=== PATIENT | female | born 1930 | race Caucasian/White ===

== ENCOUNTER → 2019-03-16 | Outpatient (CLI) | payer MEDICARE, MEDICAID ==
--- NOTE | 2019-03-16 15:34 | Diagnostic Imaging Report ---
INDICATION: Fall with pain to the lateral ankle. TIME OF EXAM: 3:20 p.m. FINDINGS: Three views of the right ankle were obtained. There is generalized demineralization. There is soft tissue swelling about the lateral ankle. There is an osseous density noted on the oblique view along the lateral aspect of the calcaneus, perhaps a small fracture fragment. The ankle mortise is maintained. Talar dome is smooth. A large plantar calcaneal spur is seen. IMPRESSION: Questionable small fracture in the lateral foot/ankle, perhaps adjacent to the lateral aspect of the calcaneus. There is lateral soft tissue swelling. No other suspicious abnormality is seen. Dictated by: Dictated on workstation # [id number]
--- NOTE | 2019-03-16 15:35 | Diagnostic Imaging Report ---
INDICATION: Fall with right foot pain. TIME OF EXAM: 03:21 p.m. FINDINGS: Three views of the right foot were obtained. There is an acute fracture at the base of the fifth metatarsal. Fracture line is transversely oriented. There is also a tiny osseous density projected adjacent to the lateral cortex of the calcaneus. This may represent calcific density noted on the ankle radiographs and could represent an age-indeterminate fracture fragment. Remaining metatarsals are intact. Phalanges are intact. Mid foot and hind foot are otherwise unremarkable apart from a large plantar calcaneal spur. IMPRESSION: 1. Proximal fifth metatarsal fracture. 2. Indeterminate calcific density adjacent to the lateral cortex of the calcaneus. Dictated by: Dictated on workstation # [id number]
== END ==
LOC: RAD 14:49
PROVIDERS: ATTEND Nurse Practitioner Family
DX: S92.351A Displaced fracture of fifth metatarsal bone, right foot, initial encounter for closed fracture (principal); W19.XXXA Unspecified fall, initial encounter
CPT/HCPCS: 73610; 73630

== ENCOUNTER 2020-12-26 11:20 | Inpatient (IN) | payer MEDICARE, MEDICAID ==
[~2020-12-26] VITALS: Ht 170.1 cm; Wt 63.7 kg
[2020-12-26] MEDS ORDERED: ACETAMINOPHEN 500 MG TAB (TYLENOL) PO ONE (11:45)
[2020-12-26] MEDS: NS IV 1000 ML 1,000 ML IV SCH ×4 (11:47→22:58)
[2020-12-26 11:51] LABS: EOSINOPHILS % (AUTO) 0 % (0-10); MONOCYTES # (AUTO) 0.5 10^3/uL (0.0-1.0); MONOCYTES % (AUTO) 9 % (0-12)
[2020-12-26 11:52] LABS: BASOPHILS % (AUTO) 0 % (0-10); HEMATOCRIT 45 % (35-52); HEMOGLOBIN 14.7 g/dL (11.5-16.0); LYMPHOCYTES # (AUTO) 2.1 10^3/uL (1.0-4.0); LYMPHOCYTES % (AUTO) 37 % (12-44); MEAN CORPUSCULAR HEMOGLOBIN 33 pg (25-34); MEAN CORPUSCULAR HGB CONC 33 g/dL (32-36); MEAN CORPUSCULAR VOLUME 102 fL (80-99); MEAN PLATELET VOLUME 14.1 fL (9.0-12.2); NEUTROPHILS % (AUTO) 53 % (42-75); WHITE BLOOD COUNT 5.6 10^3/uL (4.3-11.0)
[2020-12-26 11:54] LABS: PLATELET COUNT 73 10^3/uL (130-400)
[2020-12-26] MEDS ORDERED: DIGOXIN 0.25 MG/ML (LANOXIN) 2 ML AMP ONE (11:54)
[2020-12-26] MEDS ORDERED: DIGOXIN 0.25 MG/ML (LANOXIN) 2 ML AMP IV ONE (12:00)
[2020-12-26] MEDS ORDERED: NS IV 1000 ML 1,000 ML ONE (12:03)
[2020-12-26 12:06] LABS: ALBUMIN 3.5 GM/DL (3.2-4.5)
[2020-12-26 12:07] LABS: POTASSIUM 4.1 MMOL/L (3.6-5.0)
[2020-12-26 12:08] LABS: CALCIUM 8.8 MG/DL (8.5-10.1)
[2020-12-26 12:09] LABS: TOTAL PROTEIN 6.9 GM/DL (6.4-8.2)
[2020-12-26 12:11] LABS: BILIRUBIN,TOTAL 0.3 MG/DL (0.1-1.0)
[2020-12-26 12:13] LABS: CREATININE SERUM 1.24 MG/DL (0.60-1.30)
[2020-12-26 12:24] LABS: BILIRUBIN,URINE NEGATIVE (NEGATIVE); CLARITY,URINE CLEAR; COLOR,URINE YELLOW; GLUCOSE, URINE (UA) NEGATIVE (NEGATIVE); KETONES,URINE NEGATIVE (NEGATIVE); LEUKOCYTE ESTERASE ,URINE NEGATIVE (NEGATIVE); NITRITE,URINE POSITIVE (NEGATIVE); PH,URINE 5.5 (5-9); PROTEIN,URINE 1+ (NEGATIVE)
[2020-12-26] MEDS ORDERED: NS IV 1000 ML 1,000 ML IV SCH ×2 (12:30→13:45)
[2020-12-26 12:34] LABS: FIBRIN DEGRADATION PRODUCTS 0.84 UG/ML (0.00-0.49); PROTHROMBIN TIME PATIENT 13.6 SEC (12.2-14.7)
[2020-12-26 12:39] LABS: AMORPHOUS SEDIMENT,UR FEW AMOR URATES /LPF; BACTERIA,URINE LARGE /HPF; RBC,URINE 0-2 /HPF; WBC,URINE 0-2 /HPF
--- NOTE | 2020-12-26 12:58 | ED General ---
General Chief Complaint: Cardiac/General Problems Stated Complaint: FEVER,WEAKNESS Nursing Triage Note: TO ROOM 9 VIA EMS FROM HOME. PATIENT IS IN [facility] AT A RATE OF [address] COTA TO ROOM PATIENT HAS HAD FEVER AND IS REPORTED TO HAVE NOT EATEN OR DRANK IN 3-4 DAYS. PATIENT IS ALERT AND ORIENTED TO PERSON. Source of Information: EMS Exam Limitations: Physical Impairments History of Present Illness Date Seen by Provider: Dec 26, 2020 Time Seen by Provider: 11:30 Initial Comments Patient is an 89-year-old female who presents to the emergency department today with a chief complaint of generalized weakness. EMS gives report that the patient has not really had much to eat or drink for the last 3 days and that all of her family members are Covid positive. EMS states that family was trying to ambulate her to the car to bring her to the hospital by private vehicle and the patient became so weak that she could not stand and she was assisted to the ground by family members. She did not sustain a trauma or actual fall. The patient herself is really not complaining of any specific medical complaints. She denies feeling short of breath or palpitations although the patient's heart rate is in the 180s to 220s on arrival. She denies any nausea or shortness of breath. She does look like she feels bad. She rests mostly with her eyes closed but will answer questions. She denies abdominal pain. She denies burning with urination. I do suspect that the patient has an element of some dementia. She does know that she is in the hospital. She denies headache, sore throat, diarrhea. Patient is treated immediately with a gram of Tylenol and 2 L of IV fluids. Her pressure did drop into the 70s at one point. But after the third liter was started and half of a milligram of digoxin IV her heart rate is down into the 1 teens/120s and her blood pressure is 107 systolic. Patient remains alert and oriented to self and situation. She is oxygenating well and appears in no respiratory distress. All other review of systems reviewed and negative except as stated above. Timing/Duration: 2-3 Days Severity: Severe Associated Systoms: Loss of Appetite, Malaise, Weakness Allergies and Home Medications Allergies Coded Allergies: No Known Drug Allergies (Unverified , 12/26/20) Patient Home Medication List Home Medication List Reviewed: Yes Review of Systems Review of Systems Constitutional: fever, malaise, weakness EENTM: no symptoms reported Respiratory: no symptoms reported Cardiovascular: no symptoms reported Gastrointestinal: no symptoms reported Genitourinary: no symptoms reported Musculoskeletal: no symptoms reported Skin: no symptoms reported All Other Systems Reviewed Negative Unless Noted: Yes Past Xygdbtw-Feagfs-Hqcexk Hx Patient Social History Tobacco Use?: No Pt feels they are or have been: No Immunizations Up To Date Influenza Vaccine Up-to-Date: No; Not Current Physical Exam Vital Signs Vital Signs - First Documented 12/26/20 12/26/20 11:20 12:16 Temp 38.3 Pulse 206 Resp 37 B/P (MAP) 101/69 (80) Pulse Ox 94 O2 Flow Rate 2.00 Capillary Refill : Less Than 3 Seconds Height, Weight, BMI Height: '" Weight: lbs. oz. kg; 18.00 BMI Method: General Appearance: No Apparent Distress, Chronically ill Eyes: Bilateral Eye Normal Inspection, Bilateral Eye PERRL, Bilateral Eye EOMI HEENT: Other (Dry oral mucosa) Neck: Normal Inspection Respiratory: Lungs Clear, Normal Breath Sounds, No Accessory Muscle Use, No Respiratory Distress Cardiovascular: Irregularly Irregular, Tachycardia Gastrointestinal: Non Tender, Soft Extremity: Normal Inspection, Normal Range of Motion, Non Tender, No Calf Tenderness Neurologic/Psychiatric: Alert, Oriented x3, No Motor/Sensory Deficits, Normal Mood/Affect Skin: Normal Color, Warm/Dry, Pallor (Slight pallor noted) Focused Exam Lactate Level 12/26/20 11:20: Lactic Acid Level 3.19*H Lactic Acid Level Laboratory Tests Test 12/26/20 11:20 Lactic Acid Level 3.19 MMOL/L (0.50-2.00) *H Progress/Results/Core Measures Suspected Sepsis SIRS Temperature: Pulse: 206 Respiratory Rate: 37 Laboratory Tests 12/26/20 11:20: White Blood Count 5.6 Blood Pressure 101 /69 Mean: 85 12/26/20 11:20: Lactic Acid Level 3.19*H Laboratory Tests 12/26/20 11:20: Creatinine 1.24, INR Comment 1.0, Platelet Count 73L, Total Bilirubin 0.3 Results/Orders Lab Results Laboratory Tests Test 12/26/20 11:20 12/26/20 11:45 Range/Units White Blood Count 5.6 4.3-11.0 10^3/uL Red Blood Count 4.43 3.80-5.11 10^6/uL Hemoglobin 14.7 11.5-16.0 g/dL Hematocrit 45 35-52 % Mean Corpuscular Volume 102 H 80-99 fL Mean Corpuscular Hemoglobin 33 25-34 pg Mean Corpuscular Hemoglobin Concent 33 32-36 g/dL Red Cell Distribution Width 11.9 10.0-14.5 % Platelet Count 73 L 130-400 10^3/uL Mean Platelet Volume 14.1 H 9.0-12.2 fL Immature Granulocyte % (Auto) 0 % Neutrophils (%) (Auto) 53 42-75 % Lymphocytes (%) (Auto) 37 12-44 % Monocytes (%) (Auto) 9 0-12 % Eosinophils (%) (Auto) 0 0-10 % Basophils (%) (Auto) 0 0-10 % Neutrophils # (Auto) 3.0 1.8-7.8 10^3/uL Lymphocytes # (Auto) 2.1 1.0-4.0 10^3/uL Monocytes # (Auto) 0.5 0.0-1.0 10^3/uL Eosinophils # (Auto) 0.0 0.0-0.3 10^3/uL Basophils # (Auto) 0.0 0.0-0.1 10^3/uL Immature Granulocyte # (Auto) 0.0 0.0-0.1 10^3/uL Percent Immature Platelet Fraction 12.7 H 0.0-7.6 % Prothrombin Time 13.6 12.2-14.7 SEC INR Comment 1.0 0.8-1.4 Activated Partial Thromboplast Time 29 24-35 SEC D-Dimer 0.84 H 0.00-0.49 UG/ML Sodium Level 151 H 135-145 MMOL/L Potassium Level 4.1 3.6-5.0 MMOL/L Chloride Level 114 H 98-107 MMOL/L Carbon Dioxide Level 22 21-32 MMOL/L Anion Gap 15 H 5-14 MMOL/L Blood Urea Nitrogen 37 H 7-18 MG/DL Creatinine 1.24 0.60-1.30 MG/DL Estimat Glomerular Filtration Rate 41 BUN/Creatinine Ratio 30 Glucose Level 122 H 70-105 MG/DL Lactic Acid Level 3.19 *H 0.50-2.00 MMOL/L Calcium Level 8.8 8.5-10.1 MG/DL Corrected Calcium 9.2 8.5-10.1 MG/DL Total Bilirubin 0.3 0.1-1.0 MG/DL Aspartate Amino Transf (AST/SGOT) 40 H 5-34 U/L Alanine Aminotransferase (ALT/SGPT) 20 0-55 U/L Alkaline Phosphatase 54 40-136 U/L Total Protein 6.9 6.4-8.2 GM/DL Albumin 3.5 3.2-4.5 GM/DL Procalcitonin 0.08 <0.10 NG/ML Influenza Type A (RT-PCR) Not Detected Not Detecte Influenza Type B (RT-PCR) Not Detected Not Detecte SARS-CoV-2 RNA (RT-PCR) Detected H Not Detecte Urine Color YELLOW Urine Clarity CLEAR Urine pH 5.5 5-9 Urine Specific [place] 1.025 H 1.016-1.022 Urine Protein 1+ H NEGATIVE Urine Glucose (UA) NEGATIVE NEGATIVE Urine Ketones NEGATIVE NEGATIVE Urine Nitrite POSITIVE H NEGATIVE Urine Bilirubin NEGATIVE NEGATIVE Urine Urobilinogen 0.2 < = 1.0 MG/DL Urine Leukocyte Esterase NEGATIVE NEGATIVE Urine RBC (Auto) 1+ H NEGATIVE Urine RBC 0-2 /HPF Urine WBC 0-2 /HPF Urine Crystals PRESENT H /LPF Urine Amorphous Sediment FEW [place] URATES H /LPF Urine Bacteria LARGE H /HPF Urine Casts NONE /LPF Urine Mucus NEGATIVE /LPF Urine Culture Indicated YES My Orders Orders - TERESA COTA MD Cbc With Automated Diff (12/26/20 11:38) Comprehensive Metabolic Panel (12/26/20 11:38) Blood Culture (12/26/20 11:38) Ua Culture If Indicated (12/26/20 11:38) Procalcitonin (Pct) (12/26/20 11:38) Fibrin Degradation Products (12/26/20 11:38) Lactic Acid Analyzer (12/26/20 11:38) Chest 1 View, Ap/Pa Only (12/26/20 11:38) Covid 19 Inhouse Test (12/26/20 11:38) Influenza A And B By Pcr (12/26/20 11:38) Ns Iv 1000 Ml (Sodium Chloride 0.9%) (12/26/20 11:45) Acetaminophen Tablet (Tylenol Tablet) (12/26/20 11:45) Blood Culture (12/26/20 11:50) Digoxin Injection (Lanoxin Injection) (12/26/20 12:00) Digoxin Injection (Lanoxin Injection) (12/26/20 11:54) Ns Iv 1000 Ml (Sodium Chloride 0.9%) (12/26/20 12:03) Diltiazem Injection (Cardizem Injection) (12/26/20 12:30) Ns Iv 1000 Ml (Sodium Chloride 0.9%) (12/26/20 12:30) Protime With Inr (12/26/20 11:20) Partial Thromboplastin Time (12/26/20 11:20) Urine Culture (12/26/20 11:45) Ed Iv/Invasive Line Start (12/26/20 12:53) Ed Iv/Invasive Line Start (12/26/20 12:53) Vital Signs Adult Sepsis Patie Q15M (12/26/20 12:53) O2 (12/26/20 12:53) Remove Rings In Anticipation O (12/26/20 12:53) Ceftriaxone (Rocephin) (12/26/20 13:00) Ceftriaxone (Rocephin) (12/26/20 13:33) Water (Sterile) For Injection (Sterile W (12/26/20 13:33) Ns Iv 1000 Ml (Sodium Chloride 0.9%) (12/26/20 13:45) Pharmacy Consult/Message (12/26/20 13:55) Dexamethasone Injection (Decadron Injec (12/26/20 14:00) Medications Given in ED Current Medications Medications Dose Ordered Sig/Sukhjinder Route Start Time Stop Time Status Last Admin Dose Admin Acetaminophen 1,000 mg ONCE ONCE PO 12/26/20 11:45 12/26/20 11:46 DC 12/26/20 11:47 1,000 MG Ceftriaxone Sodium 1000 mg/ Sterile Water 10 ml @ 200 mls/hr ONCE ONCE IV 12/26/20 13:00 12/26/20 13:02 DC 12/26/20 13:42 200 MLS/HR Digoxin 0.5 mg ONCE ONCE IV 12/26/20 12:00 12/26/20 12:01 DC 12/26/20 11:56 0.5 MG Vital Signs/I&O 12/26/20 12/26/20 12/26/20 11:20 11:47 12:16 Temp 38.3 38.3 37.1 Pulse 206 134 Resp 37 17 B/P (MAP) 101/69 (80) 120/68 (85) Pulse Ox 94 95 O2 Flow Rate 2.00 Capillary Refill : Less Than 3 Seconds Blood Pressure Mean: 85 ECG Initial ECG Impression Date: Dec 26, 2020 Initial ECG Impression Time: 11:28 Initial ECG Rate: 196 Initial ECG Rhythm: A Fib/Flutter Initial ECG Impression: Atrial Fibrillation w/RVR EKG #1: EKG Time: 12:53 Rate: 139 Rhythm: A Fib/Flutter ECG Comparisson: Changed ECG Impression: Atrial Fibrillation w/RVR EKG #2: EKG Time: 13:51 Rate: 80 Rhythm: Normal Sinus Intervals: Normal ECG Comparisson: Changed ECG Impression: Normal Diagnostic Imaging Diagonstic Imaging: Xray Plain Films/CT/US/NM/MRI: chest Comments [facility], [place] NAME: TERESA ASHBY [facility] REC#: [id number] PT STATUS: REG ER : 1930 PHYSICIAN: TERESA COTA MD ADMIT DATE: 12/26/20/ER Draft Date of Exam:12/26/20 CHEST 1 VIEW, AP/PA ONLY INDICATION: Covid, pneumonia. COMPARISON: None available TECHNIQUE: Single radiograph of the chest dated 12/26/2020 FINDINGS: The cardiac silhouette is mildly enlarged. No significant pulmonary vascular congestion. Significant mixed interstitial and airspace opacities are noted within the lungs bilaterally, particularly within the left perihilar region as well as within the periphery of the right mid and lower lung. No large-volume pleural effusion. No pneumothorax. No acute osseous abnormality. IMPRESSION: Right greater than left patchy pulmonary opacities, concerning for an infectious infiltrate. Covid-19 could be considered. Enlargement of cardiac silhouette without significant pulmonary vascular congestion. Dictated on workstation # [id number] Dict: 12/26/20 1324 Trans: 12/26/20 1328 [id number] Interpreted by: DIALLO JANG MD Electronically signed by: Departure Communication (Admissions) Time/Spoke to Admitting Phy: 13:[address] martinez, recommends decadron 6mg BID and consult pharmacy for Remdisivir Impression Primary Impression: Pneumonia due to COVID-19 virus Additional Impressions: Urinary tract infection Qualified Codes: N39.0 - Urinary tract infection, site not specified Atrial fibrillation with rapid ventricular response Disposition: ADMITTED INPATIENT Condition: Critical Admissions Decision to Admit Reason: Admit from ER (General) Decision to Admit/Date: Dec 26, 2020 Time/Decision to Admit Time: 14:04 Departure-Patient Inst. Referrals: SHEA MARTINEZ MD (PCP/Family) Primary Care Physician TERESA COTA MD Dec 26, 2020 12:58
[2020-12-26] MEDS ORDERED: cefTRIAXone 1,000 MG in WATER (STERILE) FOR INJECTION 10 ML IV ONE (13:00)
--- NOTE | 2020-12-26 13:28 | Diagnostic Imaging Report ---
INDICATION: Covid, pneumonia. COMPARISON: None available TECHNIQUE: Single radiograph of the chest dated 12/26/2020 FINDINGS: The cardiac silhouette is mildly enlarged. No significant pulmonary vascular congestion. Significant mixed interstitial and airspace opacities are noted within the lungs bilaterally, particularly within the left perihilar region as well as within the periphery of the right mid and lower lung. No large-volume pleural effusion. No pneumothorax. No acute osseous abnormality. IMPRESSION: Right greater than left patchy pulmonary opacities, concerning for an infectious infiltrate. Covid-19 could be considered. Enlargement of cardiac silhouette without significant pulmonary vascular congestion. Dictated by: Dictated on workstation # [id number]
[2020-12-26] MEDS ORDERED: cefTRIAXone 1,000 MG VIAL ONE (13:33)
[2020-12-26] MEDS ORDERED: WATER (STERILE) FOR INJECTION 10 ML ONE (13:33)
[2020-12-26] MEDS ORDERED: ACETAMINOPHEN 325 MG SUPP (TYLENOL) PR PRN (15:00)
[2020-12-26] MEDS ORDERED: ACETAMINOPHEN 325 MG TABLET PO PRN (15:00)
[2020-12-26] MEDS ORDERED: REMDESIVIR 200 MG/NS 250 ML IVPB IV ONE ×2 (16:00)
--- NOTE | 2020-12-26 16:12 | Tele-ICU Consult ---
History of Present Illness History of Present Illness Date Seen by Provider: Dec 26, 2020 Time Seen by Provider: 16:12 Date of Admission Allergies and Home Medications Allergies Coded Allergies: No Known Drug Allergies (Unverified , 12/26/20) Past Medical/Social/Family Hx Patient Social History Tobacco Use?: No Smoking Status: Never a Smoker Smokeless Tobacco Frequency: Never a User Use of E-Cig and/or Vaping dev: No Substance use?: No Alcohol Use?: No Pt stated abuse/neglect: No Immunizations Up To Date Influenza Vaccine Up-to-Date: No; Not Current Tetanus Booster (TDap): Unknown Current Status status: No status: No Advance Directives: No Communicates: Verbally Primary Language: [place] Preferred Spoken Language: [place] Is interpretation needed?: No Sensory deficits: Hearing impairment Additional sensory deficits: N/A Implanted or Applied Medical D: None Review of Systems Constitutional: see HPI Sepsis Event Evaluation Height, Weight, BMI Height: '" Weight: lbs. oz. kg; 20.87 BMI Method: Exam Exam Patient acknowledged, consented, and participated in this virtual visit which was conducted using real time audio/video Vital Signs Date Time Temp Pulse Resp B/P (MAP) Pulse Ox O2 Delivery O2 Flow Rate FiO2 12/26/20 15:18 91 Nasal Cannula 2.00 12/26/20 15:00 72 28 108/62 (77) 90 Nasal Cannula 2.00 12/26/20 14:34 77 12/26/20 14:25 36.8 79 20 111/59 96 Nasal Cannula 2.00 12/26/20 12:16 37.1 134 17 120/68 (85) 95 2.00 12/26/20 11:47 38.3 12/26/20 11:20 38.3 206 37 101/69 (80) 94 Height & Weight Height: '" Weight: lbs. oz. kg; 20.87 BMI Method: General Appearance: No Apparent Distress, Chronically ill HEENT: Other (Dry oral mucosa) Neck: Normal Inspection Respiratory: Lungs Clear, Normal Breath Sounds, No Accessory Muscle Use, No Respiratory Distress Cardiovascular: Irregularly Irregular, Tachycardia Capillary Refill: Less Than 3 Seconds Extremity: Normal Inspection, Normal Range of Motion, Non Tender, No Calf Tenderness Neurologic/Psychiatric: Alert, Oriented x3, No Motor/Sensory Deficits, Normal Mood/Affect Skin: Normal Color, Warm/Dry, Pallor (Slight pallor noted) Results Lab Laboratory Tests 12/26/20 11:20 Assessment/Plan Assessment/Plan (Tele-ICU Physician , consultation) Available chart/ vitals / labs / Images reviewed H&P is from ER notes Patient's information available about PMH, Shx, Fhx allergy reviewed in EMR. ROS as per chart and RN report Patient admitted 12/26 with COVID and a fib RVR - responed to IVF - > sinus , 2 l O2 Now in ICU, hemodynamically stable Video assessment done using teleICU camera, rest of exam as per RN Discussed with RN. Consultants: A/P A fib RVR on presentation - received IVF and 0.5 dig - in sinus now ( echo 2013 - EF 60 % ) Covid PNA - decadron -remdesivir - monitor oxygenation Fever , sepsis - Covid ( plus UTI suspected in ER - UA is negative now - received 3 L NS in ER - empiric ceftriaxon started - follow closely Thrombocytopenia - due to infection ? - follow Hypernatremia - with dehydration Lines : periph [place]: OG: Nutrition: po VTE Prophylaxis: SCD - follow PLT Stress Ulcer Prophylaxis: Glycemic Control: + Plans in collaboration with bedside consultants and IM MDs. Discussed with RN to reach out if any questions or concerns A total of 27 minutes of critical care time was devoted to this patient today, required to treat and/or prevent further deterioration of critical care condition ( as above ) . CHITRA SANDERS MD Dec 26, 2020 16:12
[2020-12-26] MEDS ORDERED: RT-ALBUTEROL INHALER HFA (VENTOLIN HFA) 18 GM IH PRN (17:00)
--- NOTE | 2020-12-26 21:07 | History & Physical ---
History of Present Illness History of Present Illness Reason for visit/HPI PT IS AN 89 Y/O FEMALE WHO IS KNOWN TO ME FROM CLINIC. SHE PRESENTED TO THE HOSPITAL WITH THE APPEARANCE OF SHORTNESS OF BREATH, WEAKNESS, WORSENING CONFUSION AND NOT EATING WELL FOR SEVERAL DAYS. SHE WAS EXPOSED TO COVID-19 THROUGH FAMILY MEMBERS AND WAS TESTED IN THE ER, FOUND TO BE POSITIVE FOR COVID WITH A SECONDARY PNEUMONIA. EMS FOUND HER TO BE IN ATRIAL FIBRILLATION WITH A RATE BETWEEN 180 - 220'S Date of Admission Dec 26, 2020 at 14:00 Date Seen by a Provider: Dec 26, 2020 Time Seen by a Provider: 21:00 I consulted on this patient on 12/26/20 21:07 Attending Physician Shea Jorge MD Admitting Physician Shea Jorge MD Consult Allergies and Home Medications Allergies Coded Allergies: No Known Drug Allergies (Unverified , 12/26/20) Home Medications Cholecalciferol (Vitamin D3) 125 Mcg Tablet, 125 MCG PO DAILY, (Reported) Last Action: Reviewed Cyanocobalamin (Vitamin B-12) 1,000 Mcg Tablet, 1,000 MCG PO DAILY, (Reported) Last Action: Reviewed Donepezil HCl 5 Mg Tablet, 5 MG PO DAILY, (Reported) Last Action: Reviewed Memantine HCl 28 Mg Cap.spr.24, 28 MG PO HS, (Reported) Last Action: Reviewed Mirtazapine 15 Mg Tablet, 15 MG PO HS, (Reported) Last Action: Reviewed Patient Home Medication List Home Medication List Reviewed: Yes Past Fwjkvip-Xfmhuy-Boxmix Hx Past Med/Social Hx: Reviewed Nursing Past Med/Soc Hx, Reviewed and Corrections made Patient Social History Marrital Status: Living Status: LIVES WITH HER DTR IN HER HOME Employed/Student: retired Alcohol Use: Denies Use Smoking Status: Never a Smoker 2nd Hand Smoke Exposure: No Physical Abuse Screen: No Sexual Abuse: No Recent Foreign Travel: No Contact w/other who traveled: No Recent Hopitalizations: No Recent Infectious Disease Expo: No Seasonal Allergies Seasonal Allergies: No Past Medical History Currently Using CPAP: No Currently Using BIPAP: No : No Family History Reviewed and Corrections made Hypertension Review of Systems Constitutional: No chills; fever; No malaise; weakness EENTM: No hoarseness, No throat pain Respiratory: cough, dyspnea on exertion, short of breath Cardiovascular: No edema, No palpitations Gastrointestinal: No abdominal pain, No loss of appetite, No nausea, No vomiting Genitourinary: no symptoms reported Musculoskeletal: no symptoms reported Skin: no symptoms reported Psychiatric/Neurological: Weakness, Other (CHRONIC CONFUSION/DEMENTIA) All Other Systems Reviewed Negative Unless Noted: Yes Physical Exam Vital Signs Vital Signs - First Documented 12/26/20 12/26/20 11:20 12:16 Temp 38.3 Pulse 206 Resp 37 B/P (MAP) 101/69 (80) Pulse Ox 94 O2 Flow Rate 2.00 Capillary Refill : Less Than 3 Seconds Height, Weight, BMI Height: '" Weight: lbs. oz. kg; 20.87 BMI Method: General Appearance: No Apparent Distress, Thin Eyes: Bilateral Eye Normal Inspection, Bilateral Eye PERRL, Bilateral Eye EOMI HEENT: PERRL/EOMI, Pharynx Normal Neck: Full Range of Motion, Supple Respiratory: Chest Non Tender, Crackles (IN BASES), Decreased Breath Sounds (IN BASES) Cardiovascular: Irregularly Irregular Gastrointestinal: Normal Bowel Sounds, No Organomegaly, No Pulsatile Mass, Non Tender, Soft Rectal: Deferred Back: Normal Inspection, No Vertebral Tenderness Extremity: Normal Capillary Refill, Normal Range of Motion, Non Tender, No Calf Tenderness, No Pedal Edema Neurologic/Psychiatric: Alert, Other (ORIENTED TO PERSON, NOT PLACE OR TIME) Skin: Normal Color, Warm/Dry Lymphatic: No Adenopathy Assessment/Plan Assessment and Plan COVID 19 PNEUMONIA SECONDARY BACTERIAL PNEUMONIA ADVANCED AGE DEMENTIA ATRIAL FIBRILLATION WITH RVR FEVER SEPSIS HYPERNATREMIA THROMBOCYTOPENIA UTI - NITRITE POSITIVE COVID 19 PNEUMONIA WITH SECONDARY BACTERIAL PNEUMONIA WITH SEPSIS - DECADRON - REMDESIVIR IV - IV FLUID ADVANCED AGE WITH DEMENTIA ATRIAL FIBRILLATION WITH RVR - PT GIVEN DIGOXIN IV IN THE ER, MONITOR HEART RATE HYPERNATREMIA - IV FLUIDS, WILL MONITOR LABS TOMORROW. THROMBOCYTOPENIA - DUE TO VIRAL SUPPRESSION UTI - NITRITE POSITIVE - IV ANTIBIOTICS DVT PROPHYLAXIS WITH LOVENOX ATTEMPTED TO CALL FAMILY - UNABLE TO GET FAMILY ON THE PHONE TONIGHT Admission Diagnosis COVID 19 PNEUMONIA SECONDARY BACTERIAL PNEUMONIA ADVANCED AGE DEMENTIA ATRIAL FIBRILLATION WITH RVR FEVER SEPSIS HYPERNATREMIA THROMBOCYTOPENIA Admission Status: Inpatient Order (span 2 midnights) Reason for Inpatient Admission: INPT ADMISSION FOR COVID 19, WILL REQUIRE AT LEAST 3-5 DAYS IN THE HOSPITAL FOR TREATMENT REGIMEN TO BE COMPLETED SHEA JORGE MD Dec 26, 2020 21:07
[2020-12-27] MEDS ORDERED: NS IV 1000 ML 500 ML IV SCH (04:30)
[2020-12-27 05:00] LABS: BASOPHILS % (AUTO) 0 % (0-10); EOSINOPHILS % (AUTO) 0 % (0-10); HEMATOCRIT 38 % (35-52); HEMOGLOBIN 12.1 g/dL (11.5-16.0); LYMPHOCYTES # (AUTO) 0.8 10^3/uL (1.0-4.0); LYMPHOCYTES % (AUTO) 35 % (12-44); MEAN CORPUSCULAR HEMOGLOBIN 33 pg (25-34); MEAN CORPUSCULAR HGB CONC 32 g/dL (32-36); MEAN CORPUSCULAR VOLUME 105 fL (80-99); MEAN PLATELET VOLUME 13.6 fL (9.0-12.2); MONOCYTES # (AUTO) 0.2 10^3/uL (0.0-1.0); MONOCYTES % (AUTO) 6 % (0-12); NEUTROPHILS # (AUTO) 1.4 10^3/uL (1.8-7.8); NEUTROPHILS % (AUTO) 58 % (42-75); PLATELET COUNT 55 10^3/uL (130-400); WHITE BLOOD COUNT 2.4 10^3/uL (4.3-11.0)
[2020-12-27 05:06] LABS: CHLORIDE 124 MMOL/L (98-107); POTASSIUM 3.9 MMOL/L (3.6-5.0); SODIUM 149 MMOL/L (135-145)
[2020-12-27 05:07] LABS: CALCIUM 7.5 MG/DL (8.5-10.1)
[2020-12-27 05:08] LABS: GLUCOSE 116 MG/DL (70-105)
[2020-12-27 05:09] LABS: CARBON DIOXIDE 18 MMOL/L (21-32)
[2020-12-27 05:12] LABS: CREATININE SERUM 0.76 MG/DL (0.60-1.30); GFR ESTIMATED > 60; PHOSPHORUS 2.8 MG/DL (2.3-4.7)
[2020-12-27 05:13] LABS: BUN/CREATININE RATIO 43
[2020-12-27 05:14] LABS: MAGNESIUM 2.1 MG/DL (1.6-2.4)
--- NOTE | 2020-12-27 08:27 | Progress Note ---
Subjective Subjective Date Seen by Provider: Dec 27, 2020 Time Seen by Provider: 08:27 PT CONFUSED, STAFF REPORTS THAT SHE HAS BEEN PULLING AT HER LINES, PULLING HER IV OUT, NOT LEAVING HER OXYGEN ON AND PICKING AT HER LINES. SHE REPORTS THAT IS FEELING "FINE". STAFF REPORTS AN URGENT CALL FROM ICU ABOUT HER WITH A HEART RATE OF 32 NOTED ON TELE. Review of Systems General: No Chills; Fatigue Pulmonary: Dyspnea, Cough Cardiovascular: No: Chest Pain, Palpitations Gastrointestinal: No: Nausea, Abdominal Pain Genitourinary: No Dysuria Neurological: Weakness; No: Confusion All Other Systems Reviewed All Other Systems Reviewed: Yes Objective Exam Vital Signs Vital Signs - First Documented 12/26/20 12/26/20 11:20 12:16 Temp 38.3 Pulse 206 Resp 37 B/P (MAP) 101/69 (80) Pulse Ox 94 O2 Flow Rate 2.00 Capillary Refill : Less Than 3 Seconds General Appearance: No Apparent Distress, Chronically ill, Thin Eyes: Bilateral Eye Normal Inspection, Bilateral Eye PERRL, Bilateral Eye EOMI HEENT: Other (Dry oral mucosa) Neck: Normal Inspection Respiratory: Normal Breath Sounds, No Accessory Muscle Use, No Respiratory Distress, Decreased Breath Sounds Cardiovascular: Irregularly Irregular, Tachycardia Gastrointestinal: Non Tender, Soft Extremity: Normal Inspection, Normal Range of Motion, Non Tender, No Calf Tenderness Neurologic/Psychiatric: Alert, Oriented x3, No Motor/Sensory Deficits, Normal Mood/Affect Skin: Normal Color, Warm/Dry, Pallor (Slight pallor noted) Results Lab Laboratory Tests 12/26/20 11:20: White Blood Count 5.6, Red Blood Count 4.43, Hemoglobin 14.7, Hematocrit 45, Mean Corpuscular Volume 102H, Mean Corpuscular Hemoglobin 33, Mean Corpuscular Hemoglobin Concent 33, Red Cell Distribution Width 11.9, Platelet Count 73L, Mean Platelet Volume 14.1H, Immature Granulocyte % (Auto) 0, Neutrophils (%) (Auto) 53, Lymphocytes (%) (Auto) 37, Monocytes (%) (Auto) 9, Eosinophils (%) (Auto) 0, Basophils (%) (Auto) 0, Neutrophils # (Auto) 3.0, Lymphocytes # (Auto) 2.1, Monocytes # (Auto) 0.5, Eosinophils # (Auto) 0.0, Basophils # (Auto) 0.0, Immature Granulocyte # (Auto) 0.0, Percent Immature Platelet Fraction 12.7H, Prothrombin Time 13.6, INR Comment 1.0, Activated Partial Thromboplast Time 29, D-Dimer 0.84H, Sodium Level 151H, Potassium Level 4.1, Chloride Level 114H, Carbon Dioxide Level 22, Anion Gap 15H, Blood Urea Nitrogen 37H, Creatinine 1.24, Estimat Glomerular Filtration Rate 41, BUN/Creatinine Ratio 30, Glucose Level 122H, Lactic Acid Level 3.19*H, Calcium Level 8.8, Corrected Calcium 9.2, Total Bilirubin 0.3, Aspartate Amino Transf (AST/SGOT) 40H, Alanine Aminotransfe rase (ALT/SGPT) 20, Alkaline Phosphatase 54, Total Protein 6.9, Albumin 3.5, Procalcitonin 0.08, Influenza Type A (RT-PCR) Not Detected, Influenza Type B (RT-PCR) Not Detected, SARS-CoV-2 RNA (RT-PCR) DetectedH 12/26/20 11:45: Urine Color YELLOW, Urine Clarity CLEAR, Urine pH 5.5, Urine Specific [place] 1.025H, Urine Protein 1+H, Urine Glucose (UA) NEGATIVE, Urine Ketones NEGATIVE, Urine Nitrite POSITIVEH, Urine Bilirubin NEGATIVE, Urine Urobilinogen 0.2, Urine Leukocyte Esterase NEGATIVE, Urine RBC (Auto) 1+H, Urine RBC 0-2, Urine WBC 0-2, Urine Crystals PRESENTH, Urine Amorphous Sediment FEW [place] URATESH, Urine Bacteria LARGEH, Urine Casts NONE, Urine Mucus NEGATIVE, Urine Culture Indicated YES 12/26/20 15:50: Lactic Acid Level 0.82 12/27/20 04:03: White Blood Count 2.4L, Red Blood Count 3.67L, Hemoglobin 12.1, Hematocrit 38, Mean Corpuscular Volume 105H, Mean Corpuscular Hemoglobin 33, Mean Corpuscular Hemoglobin Concent 32, Red Cell Distribution Width 11.9, Platelet Count 55L, Mean Platelet Volume 13.6H, Immature Granulocyte % (Auto) 0, Neutrophils (%) (Auto) 58, Lymphocytes (%) (Auto) 35, Monocytes (%) (Auto) 6, Eosinophils (%) (Auto) 0, Basophils (%) (Auto) 0, Neutrophils # (Auto) 1.4L, Lymphocytes # (Auto) 0.8L, Monocytes # (Auto) 0.2, Eosinophils # (Auto) 0.0, Basophils # (Auto) 0.0, Immature Granulocyte # (Auto) 0.0, Sodium Level 149H, Potassium Level 3.9, Chloride Level 124#H, Carbon Dioxide Level 18L, Anion Gap 7, Blood Urea Nitrogen 33H, Creatinine 0.76, Estimat Glomerular Filtration Rate > 60, BUN/Creatinine Ratio 43, Glucose Level 116H, Calcium Level 7.5L, Phosphorus Level 2.8, Magnesium Level 2.1 Microbiology 12/26/20 Urine Culture - Preliminary, Resulted Probable Klebsiella/Enterobact Assessment/Plan Assessment/Plan Admission Dx COVID 19 PNEUMONIA SECONDARY BACTERIAL PNEUMONIA 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 THROMBOCYTOPENIA - DUE TO VIRAL SUPPRESSION UTI - NITRITE POSITIVE - KLEBSIELLA - IV ANTIBIOTICS - ROCEPHIN DVT PROPHYLAXIS WITH LOVENOX DISCUSSED HER CODE STATUS WITH HER GRANDDAUGHTERS ALLA AND BERONICA (COULD NOT GET AHOLD OF DALE - WRONG NUMBER IN THE CHART), AND THEN HER DTR DALE CALLED THE HOSPITAL. WE DISCUSSED THE FACT THAT WITH COVID AND HER AGE AND OTHER ILLNESS SHE IS AT HIGH RISK OF CARDIOPULMONARY DECLINE AND WE NEED TO HAVE A JENSEN DISCUSSION OF HER CODE STATUS. DALE STATED THAT " I AM NOT READY FOR HER TO LEAVE ME." I ADVISED DALE THAT HUMANS WE ALL ARE NEVER READY TO LET SOMEONE THAT WE LOVE GO - HOWEVER, AT 89 Y/O WE NEED TO EVALUATE WETHER IT WOULD BE TO [place] BENEFIT TO ALLOW HER TO PASS NATURALLY OR TO ARTIFICIALLY KEEP HER ALIVE AND PUT HER THROUGH THE TRAUMA AND POTENTIAL OUTCOME OF WORSENING FUNCTION SHOULD SHE SURVIVE A CODE. DALE WILL DISCUSS THIS WITH HER BROTHERS AND LET US KNOW THEIR DECISION. Admission Dx COVID 19 PNEUMONIA SECONDARY BACTERIAL PNEUMONIA ADVANCED AGE DEMENTIA Clinical Quality Measures Admission Status Admission Dx COVID 19 PNEUMONIA SECONDARY BACTERIAL PNEUMONIA ADVANCED AGE DEMENTIA SHEA MARTINEZ MD Dec 27, 2020 08:27
[2020-12-27] MEDS: FAMOTIDINE 20MG/2ML IV (PEPCID) IVP SCH (10:36)
[2020-12-27] MEDS: D5 1/2 NS 1000 ML IV SOLUTION 1,000 ML IV SCH ×3 (10:41→22:11)
[2020-12-27] MEDS ORDERED: MEMA28CA5 PO (11:02)
[2020-12-27] MEDS ORDERED: MIRT-68 PO (11:02)
[2020-12-27] MEDS ORDERED: CYAN-41 PO (11:02)
[2020-12-27] MEDS ORDERED: DONE5TAB30 PO (11:02)
[2020-12-27] MEDS ORDERED: CHOL500044 PO (11:02)
--- NOTE | 2020-12-27 13:08 | Tele-ICU Progress Note ---
Subjective Date Seen by a Provider: Dec 27, 2020 Time Seen by a Provider: 09:20 Sepsis Event Evaluation Height, Weight, BMI Height: '" Weight: lbs. oz. kg; 20.87 BMI Method: Focused Exam Lactate Level 12/26/20 11:20: Lactic Acid Level 3.19*H 12/26/20 15:50: Lactic Acid Level 0.82 Exam Exam Patient acknowledged, consented, and participated in this virtual visit which was conducted using real time audio/video Vital Signs Date Time Temp Pulse Resp B/P (MAP) Pulse Ox O2 Delivery O2 Flow Rate FiO2 12/27/20 12:41 56 12/27/20 11:00 11 114/73 (87) 95 Nasal Cannula 3.00 12/27/20 10:00 62 32 118/63 (81) 90 Nasal Cannula 3.00 12/27/20 09:01 34.8 12/27/20 09:00 60 22 124/68 (86) 93 Nasal Cannula 3.00 12/27/20 08:30 60 11 129/60 (83) 94 Nasal Cannula 3.00 12/27/20 08:00 93 Nasal Cannula 3.00 12/27/20 07:00 52 12/27/20 06:30 30 108/51 (70) Nasal Cannula 3.00 12/27/20 06:00 58 18 Nasal Cannula 3.00 12/27/20 05:00 52 20 96 Nasal Cannula 3.00 12/27/20 04:10 60 11 103/48 (66) 93 Nasal Cannula 3.00 12/27/20 04:00 93 Nasal Cannula 3.00 12/27/20 03:55 35.0 Nasal Cannula 3.00 12/27/20 03:36 50 8 96/61 (73) 93 Nasal Cannula 3.00 12/27/20 02:15 55 14 106/54 (83) 93 Nasal Cannula 3.00 12/27/20 01:26 Nasal Cannula 3.00 12/27/20 01:08 63 12/27/20 01:00 54 26 104/59 (73) 95 Nasal Cannula 2.00 12/27/20 00:54 35.0 12/27/20 00:54 36.0 12/27/20 00:00 45 28 105/48 (67) 94 Nasal Cannula 2.00 12/27/20 00:00 94 Nasal Cannula 2.00 12/26/20 23:59 Nasal Cannula 2.00 12/26/20 23:22 35.1 12/26/20 23:21 34.4 12/26/20 23:00 54 38 103/46 (65) 94 Room Air 12/26/20 22:14 34.4 12/26/20 22:00 49 19 99/51 (70) 94 Room Air 12/26/20 21:00 67 29 115/58 (77) 96 Room Air 12/26/20 20:09 34.7 12/26/20 20:05 Room Air 12/26/20 20:00 55 12 105/52 (84) 96 Nasal Cannula 2.00 12/26/20 20:00 96 Room Air 12/26/20 19:45 63 23 96/61 (74) 89 Nasal Cannula 2.00 12/26/20 19:30 52 26 99/49 (76) 92 Nasal Cannula 2.00 12/26/20 19:15 55 28 99/48 (77) 90 Nasal Cannula 2.00 12/26/20 19:00 56 28 103/49 (67) 90 Nasal Cannula 2.00 12/26/20 19:00 56 12/26/20 18:00 54 26 97/47 (64) 92 Nasal Cannula 2.00 12/26/20 17:00 59 28 101/53 (69) 94 Nasal Cannula 2.00 12/26/20 16:47 70 92 12/26/20 16:12 35.8 12/26/20 16:00 70 27 125/68 (87) 92 Nasal Cannula 2.00 12/26/20 15:18 91 Nasal Cannula 2.00 12/26/20 15:00 72 28 108/62 (77) 90 Nasal Cannula 2.00 12/26/20 14:34 77 12/26/20 14:25 36.8 79 20 111/59 96 Nasal Cannula 2.00 12/26/20 14:25 36.5 Nasal Cannula 2.00 I & O 12/27/20 07:00 Intake Total 4260 ml Output Total 825 ml Balance 3435 ml Height & Weight Height: '" Weight: lbs. oz. kg; 20.87 BMI Method: General Appearance: No Apparent Distress, Chronically ill HEENT: Other (Dry oral mucosa) Neck: Normal Inspection Respiratory: Lungs Clear, Normal Breath Sounds, No Accessory Muscle Use, No Respiratory Distress Cardiovascular: Irregularly Irregular, Tachycardia Capillary Refill: Less Than 3 Seconds Extremity: Normal Inspection, Normal Range of Motion, Non Tender, No Calf Tenderness Neurologic/Psychiatric: Alert, Oriented x3, No Motor/Sensory Deficits, Normal Mood/Affect Skin: Normal Color, Warm/Dry, Pallor (Slight pallor noted) Results Lab Laboratory Tests 12/26/20 11:20 12/27/20 04:03 Assessment/Plan Assessment/Plan Tele-ICU Physician , consultation) Available chart/ vitals / labs / Images reviewed Video assessment done using teleICU camera, rest of exam as per RN Discussed with RN Events overnight : Afebrile hemodynamically stable, no pressors, I/O = POS 36 00 As per RN exam : Consultants: Hospital course: 12/26 with COVID and a fib RVR - responed to IVF - > sinus , 2 l O2 A/P A fib RVR on presentation - received IVF and 0.5 dig - in sinus now ( echo 2013 - EF 60 % ) Covid PNA - decadron -remdesivir - monitor oxygenation Fever , sepsis - Covid and UTI - received 3 L NS in ER - empiric ceftriaxon started urine cx 12/26- PROBABLE KLEBSIELLA/ENTEROBACT follow closely Thrombocytopenia - worsening with agressive IVF resuscitation - due to infection vs DIC ? - follow Hypernatremia - with dehydration Lines : periph [place]: OG: Nutrition: po VTE Prophylaxis: SCD - follow PLT Stress Ulcer Prophylaxis: Glycemic Control: + Plans in collaboration with bedside consultants and IM MDs. Discussed with RN to reach out if any questions or concerns A total of 27 minutes of critical care time was devoted to this patient today, required to treat and/or prevent further deterioration of critical care condition ( as above ) . CHITRA SANDERS MD Dec 27, 2020 13:08
[2020-12-27] MEDS: REMDESIVIR 100 MG/NS 250 ML IVPB IV SCH ×2 (15:29)
[2020-12-27] MEDS: cefTRIAXone 1,000 MG/SWFI 10 ML IV PUSH IV SCH ×2 (15:29)
[2020-12-27] MEDS: ENOXAPARIN 40 MG/0.4 ML (LOVENOX) SYR SC SCH (20:16)
[2020-12-28 05:25] LABS: EOSINOPHILS % (AUTO) 0 % (0-10); HEMATOCRIT 40 % (35-52)
[2020-12-28 05:26] LABS: BASOPHILS % (AUTO) 0 % (0-10); HEMOGLOBIN 13.1 g/dL (11.5-16.0); LYMPHOCYTES # (AUTO) 1.2 10^3/uL (1.0-4.0); LYMPHOCYTES % (AUTO) 17 % (12-44); MEAN CORPUSCULAR HEMOGLOBIN 33 pg (25-34); MEAN CORPUSCULAR HGB CONC 33 g/dL (32-36); MEAN CORPUSCULAR VOLUME 101 fL (80-99); MEAN PLATELET VOLUME 14.2 fL (9.0-12.2); MONOCYTES # (AUTO) 0.4 10^3/uL (0.0-1.0); MONOCYTES % (AUTO) 6 % (0-12); NEUTROPHILS # (AUTO) 5.5 10^3/uL (1.8-7.8); NEUTROPHILS % (AUTO) 77 % (42-75); PLATELET COUNT 80 10^3/uL (130-400); WHITE BLOOD COUNT 7.2 10^3/uL (4.3-11.0)
[2020-12-28 05:38] LABS: CHLORIDE 114 MMOL/L (98-107); POTASSIUM 4.7 MMOL/L (3.6-5.0); SODIUM 145 MMOL/L (135-145)
[2020-12-28 05:39] LABS: CALCIUM 7.7 MG/DL (8.5-10.1); GLUCOSE 127 MG/DL (70-105)
[2020-12-28 05:41] LABS: CARBON DIOXIDE 17 MMOL/L (21-32)
[2020-12-28 05:43] LABS: CREATININE SERUM 0.76 MG/DL (0.60-1.30); GFR ESTIMATED > 60; PHOSPHORUS 2.3 MG/DL (2.3-4.7)
[2020-12-28 05:44] LABS: BUN/CREATININE RATIO 37
[2020-12-28] MEDS: NS IV 1000 ML 1,000 ML IV SCH ×2 (08:45→20:33)
[2020-12-28] MEDS: FAMOTIDINE 20MG/2ML IV (PEPCID) IVP SCH (08:46)
--- NOTE | 2020-12-28 09:02 | Progress Note ---
Subjective Subjective Date Seen by Provider: Dec 28, 2020 Time Seen by Provider: 18:00 PT CONFUSED, STAFF REPORTS THAT SHE HAS BEEN PULLING AT HER LINES, PULLING HER IV OUT, NOT LEAVING HER OXYGEN ON AND PICKING AT HER LINES. SHE REPORTS THAT IS FEELING "FINE". STAFF REPORTS THAT SHE IS NOT EATING WELL Review of Systems General: No Chills; Fatigue Pulmonary: Dyspnea, Cough Cardiovascular: No: Chest Pain, Palpitations Gastrointestinal: No: Nausea, Abdominal Pain Genitourinary: No Dysuria Neurological: Weakness; No: Confusion All Other Systems Reviewed All Other Systems Reviewed: Yes Objective Exam Vital Signs Vital Signs - First Documented 12/26/20 12/26/20 11:20 12:16 Temp 38.3 Pulse 206 Resp 37 B/P (MAP) 101/69 (80) Pulse Ox 94 O2 Flow Rate 2.00 Capillary Refill : Less Than 3 Seconds General Appearance: No Apparent Distress, Chronically ill, Thin Eyes: Bilateral Eye Normal Inspection, Bilateral Eye PERRL, Bilateral Eye EOMI HEENT: Other (Dry oral mucosa) Neck: Normal Inspection Respiratory: Normal Breath Sounds, No Accessory Muscle Use, No Respiratory Distress, Decreased Breath Sounds Cardiovascular: Irregularly Irregular, Tachycardia Gastrointestinal: Non Tender, Soft Rectal: Deferred Back: Normal Inspection, No Vertebral Tenderness Extremity: Normal Inspection, Normal Range of Motion, Non Tender, No Calf Tenderness Neurologic/Psychiatric: Alert, Oriented x3, No Motor/Sensory Deficits, Normal Mood/Affect Skin: Normal Color, Warm/Dry, Pallor (Slight pallor noted) Lymphatic: No Adenopathy Results Lab Laboratory Tests 12/28/20 05:10: White Blood Count 7.2, Red Blood Count 3.97, Hemoglobin 13.1, Hematocrit 40, Mean Corpuscular Volume 101H, Mean Corpuscular Hemoglobin 33, Mean Corpuscular Hemoglobin Concent 33, Red Cell Distribution Width 11.7, Platelet Count 80L, Mean Platelet Volume 14.2H, Immature Granulocyte % (Auto) 1, Neutrophils (%) (Auto) 77H, Lymphocytes (%) (Auto) 17, Monocytes (%) (Auto) 6, Eosinophils (%) (Auto) 0, Basophils (%) (Auto) 0, Neutrophils # (Auto) 5.5, Lymphocytes # (Auto) 1.2, Monocytes # (Auto) 0.4, Eosinophils # (Auto) 0.0, Basophils # (Auto) 0.0, Immature Granulocyte # (Auto) 0.0, Percent Immature Platelet Fraction 18.3H, Sodium Level 145, Potassium Level 4.7, Chloride Level 114H, Carbon Dioxide Level 17L, Anion Gap 14, Blood Urea Nitrogen 28H, Creatinine 0.76, Estimat Glomerular Filtration Rate > 60, BUN/Creatinine Ratio 37, Glucose Level 127H, Calcium Level 7.7L, Phosphorus Level 2.3, Magnesium Level 2.0 Microbiology 12/26/20 MRSA Screen - Final, Complete MRSA not isolated 12/26/20 Urine Culture - Preliminary, Resulted Klebsiella pneumoniae 12/26/20 Blood Culture - Preliminary, Resulted No growth Assessment/Plan Assessment/Plan Admission Dx COVID 19 PNEUMONIA SECONDARY BACTERIAL PNEUMONIA 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 THROMBOCYTOPENIA - DUE TO VIRAL SUPPRESSION UTI - NITRITE POSITIVE - KLEBSIELLA - IV ANTIBIOTICS - ROCEPHIN DVT PROPHYLAXIS WITH LOVENOX DISCUSSED HER CODE STATUS WITH HER GRANDDAUGHTERS ALLA AND BERONICA (COULD NOT GET AHOLD OF DALE - WRONG NUMBER IN THE CHART), AND THEN HER DTR DALE CALLED THE HOSPITAL. WE DISCUSSED THE FACT THAT WITH [place] AND HER AGE AND OTHER ILLNESS SHE IS AT HIGH RISK OF CARDIOPULMONARY DECLINE AND WE NEED TO HAVE A JENSEN DISCUSSION OF HER CODE STATUS. DALE STATED THAT " I AM NOT READY FOR HER TO LEAVE ME." I ADVISED DALE THAT HUMANS WE ALL ARE NEVER READY TO LET SOMEONE THAT WE LOVE GO - HOWEVER, AT 89 Y/O WE NEED TO EVALUATE WETHER IT WOULD BE TO [place] BENEFIT TO ALLOW HER TO PASS NATURALLY OR TO ARTIFICIALLY KEEP HER ALIVE AND PUT HER THROUGH THE TRAUMA AND POTENTIAL OUTCOME OF WORSENING FUNCTION SHOULD SHE SURVIVE A CODE. DALE WILL DISCUSS THIS WITH HER BROTHERS AND LET US KNOW THEIR DECISION. Admission Dx COVID 19 PNEUMONIA SECONDARY BACTERIAL PNEUMONIA ADVANCED AGE DEMENTIA ATRIAL FIBRILLATION WITH RVR FEVER SEPSIS HYPERNATREMIA THROMBOCYTOPENIA UTI - NITRITE POSITIVE Clinical Quality Measures Admission Status Admission Dx COVID 19 PNEUMONIA SECONDARY BACTERIAL PNEUMONIA ADVANCED AGE DEMENTIA ATRIAL FIBRILLATION WITH RVR FEVER SEPSIS HYPERNATREMIA THROMBOCYTOPENIA UTI - NITRITE POSITIVE SHEA MARTINEZ MD Dec 28, 2020 09:02
[2020-12-28] MEDS: cefTRIAXone 1,000 MG/SWFI 10 ML IV PUSH IV SCH ×2 (14:58)
[2020-12-28] MEDS: REMDESIVIR 100 MG/NS 250 ML IVPB IV SCH ×2 (16:41)
[2020-12-28] MEDS ORDERED: risperiDONE 0.25 MG (RisperDAL) TAB PO PRN (19:00)
[2020-12-28] MEDS: ENOXAPARIN 40 MG/0.4 ML (LOVENOX) SYR SC SCH (20:33)
[2020-12-29 06:05] LABS: EOSINOPHILS % (AUTO) 0 % (0-10); MEAN PLATELET VOLUME 14.2 fL (9.0-12.2); NEUTROPHILS # (AUTO) 4.3 10^3/uL (1.8-7.8)
[2020-12-29 06:07] LABS: BASOPHILS % (AUTO) 0 % (0-10); HEMATOCRIT 37 % (35-52); LYMPHOCYTES # (AUTO) 1.4 10^3/uL (1.0-4.0); LYMPHOCYTES % (AUTO) 23 % (12-44); MEAN CORPUSCULAR HEMOGLOBIN 34 pg (25-34); MEAN CORPUSCULAR HGB CONC 35 g/dL (32-36); MEAN CORPUSCULAR VOLUME 96 fL (80-99); MONOCYTES # (AUTO) 0.5 10^3/uL (0.0-1.0); MONOCYTES % (AUTO) 8 % (0-12); NEUTROPHILS % (AUTO) 69 % (42-75); PLATELET COUNT 73 10^3/uL (130-400); WHITE BLOOD COUNT 6.3 10^3/uL (4.3-11.0)
[2020-12-29 06:21] LABS: CHLORIDE 109 MMOL/L (98-107); POTASSIUM 5.4 MMOL/L (3.6-5.0); SODIUM 139 MMOL/L (135-145)
[2020-12-29 06:22] LABS: CALCIUM 7.6 MG/DL (8.5-10.1)
[2020-12-29 06:23] LABS: GLUCOSE 88 MG/DL (70-105)
[2020-12-29 06:24] LABS: CARBON DIOXIDE 21 MMOL/L (21-32)
[2020-12-29 06:27] LABS: CREATININE SERUM 0.65 MG/DL (0.60-1.30); GFR ESTIMATED > 60; PHOSPHORUS 2.4 MG/DL (2.3-4.7)
[2020-12-29 06:28] LABS: BUN/CREATININE RATIO 25
[2020-12-29 06:29] LABS: MAGNESIUM 1.8 MG/DL (1.6-2.4)
[2020-12-29] MEDS: FAMOTIDINE 20MG/2ML IV (PEPCID) IVP SCH (09:51)
[2020-12-29] MEDS: NS IV 1000 ML 1,000 ML IV SCH ×2 (09:51→23:47)
--- NOTE | 2020-12-29 09:53 | Progress Note ---
Subjective Subjective Date Seen by Provider: Dec 29, 2020 Time Seen by Provider: 09:40 PT CONFUSED, STAFF REPORTS THAT SHE HAS BEEN PULLING AT HER LINES, PULLING HER IV OUT, NOT LEAVING HER OXYGEN ON AND PICKING AT HER LINES. PT IS NOT EATING WELL - FOR NURSES OR AIDES. Review of Systems General: No Chills; Fatigue Pulmonary: Dyspnea, Cough Cardiovascular: No: Chest Pain, Palpitations Gastrointestinal: No: Nausea, Abdominal Pain Genitourinary: No Dysuria Neurological: Weakness; No: Confusion All Other Systems Reviewed All Other Systems Reviewed: Yes Objective Exam Vital Signs Vital Signs - First Documented 12/26/20 12/26/20 11:20 12:16 Temp 38.3 Pulse 206 Resp 37 B/P (MAP) 101/69 (80) Pulse Ox 94 O2 Flow Rate 2.00 Capillary Refill : Less Than 3 Seconds General Appearance: No Apparent Distress, Chronically ill, Thin Eyes: Bilateral Eye Normal Inspection, Bilateral Eye PERRL, Bilateral Eye EOMI HEENT: Other (Dry oral mucosa) Neck: Normal Inspection Respiratory: Normal Breath Sounds, No Accessory Muscle Use, No Respiratory Distress, Decreased Breath Sounds Cardiovascular: Irregularly Irregular, Tachycardia Gastrointestinal: Non Tender, Soft Rectal: Deferred Back: Normal Inspection, No Vertebral Tenderness Extremity: Normal Inspection, Normal Range of Motion, Non Tender, No Calf Tenderness Neurologic/Psychiatric: Alert, Oriented x3, No Motor/Sensory Deficits, Normal Mood/Affect Skin: Normal Color, Warm/Dry, Pallor (Slight pallor noted) Lymphatic: No Adenopathy Results Lab Laboratory Tests 12/29/20 05:56: White Blood Count 6.3, Red Blood Count 3.87, Hemoglobin 13.0, Hematocrit 37, Mean Corpuscular Volume 96, Mean Corpuscular Hemoglobin 34, Mean Corpuscular Hemoglobin Concent 35, Red Cell Distribution Width 11.7, Platelet Count 73L, Mean Platelet Volume 14.2H, Immature Granulocyte % (Auto) 1, Neutrophils (%) (Auto) 69, Lymphocytes (%) (Auto) 23, Monocytes (%) (Auto) 8, Eosinophils (%) (Auto) 0, Basophils (%) (Auto) 0, Neutrophils # (Auto) 4.3, Lymphocytes # (Auto) 1.4, Monocytes # (Auto) 0.5, Eosinophils # (Auto) 0.0, Basophils # (Auto) 0.0, Immature Granulocyte # (Auto) 0.0, Percent Immature Platelet Fraction 19.1H, Sodium Level 139, Potassium Level 5.4H, Chloride Level 109H, Carbon Dioxide Level 21, Anion Gap 9, Blood Urea Nitrogen 16, Creatinine 0.65, Estimat Glomerul ar Filtration Rate > 60, BUN/Creatinine Ratio 25, Glucose Level 88, Calcium Level 7.6L, Phosphorus Level 2.4, Magnesium Level 1.8 Microbiology 12/26/20 MRSA Screen - Final, Complete MRSA not isolated 12/26/20 Urine Culture - Final, Complete Klebsiella pneumoniae Mixed Bacterial Tiana 12/26/20 Blood Culture - Preliminary, Resulted No growth Assessment/Plan Assessment/Plan Admission Dx COVID 19 PNEUMONIA SECONDARY BACTERIAL PNEUMONIA ADVANCED AGE DEMENTIA ATRIAL FIBRILLATION WITH RVR FEVER SEPSIS HYPERNATREMIA THROMBOCYTOPENIA UTI - NITRITE POSITIVE Assessment and Plan COVID 19 PNEUMONIA SECONDARY BACTERIAL PNEUMONIA ADVANCED AGE DEMENTIA ATRIAL FIBRILLATION WITH RVR FEVER SEPSIS HYPERNATREMIA THROMBOCYTOPENIA UTI - NITRITE POSITIVE COVID 19 PNEUMONIA WITH SECONDARY BACTERIAL PNEUMONIA WITH SEPSIS - DECADRON - REMDESIVIR IV - IV FLUID ADVANCED AGE WITH DEMENTIA ATRIAL FIBRILLATION WITH RVR - PT GIVEN DIGOXIN IV IN THE ER, MONITOR HEART RATE - IMPROVED RATE HYPERNATREMIA - IV FLUIDS, WILL MONITOR LABS TOMORROW. THROMBOCYTOPENIA - DUE TO VIRAL SUPPRESSION UTI - NITRITE POSITIVE - KLEBSIELLA - IV ANTIBIOTICS - ROCEPHIN DVT PROPHYLAXIS WITH LOVENOX PT IS DNR/DNI PER FAMILY REPORT. PT'S FAMILY MEMBER WILL TRY TO GET HER TO EAT FOR THEM. PT WILL HOPEFULLY BE DISCHARGED TO HOME TOMORROW IN THE CARE OF HER FAMILY. THEY WILL LET US KNOW IF THEY WANT HOME HEALTH. Admission Dx COVID 19 PNEUMONIA SECONDARY BACTERIAL PNEUMONIA ADVANCED AGE DEMENTIA ATRIAL FIBRILLATION WITH RVR FEVER SEPSIS HYPERNATREMIA THROMBOCYTOPENIA UTI - NITRITE POSITIVE Clinical Quality Measures Admission Status Admission Dx COVID 19 PNEUMONIA SECONDARY BACTERIAL PNEUMONIA ADVANCED AGE DEMENTIA ATRIAL FIBRILLATION WITH RVR FEVER SEPSIS HYPERNATREMIA THROMBOCYTOPENIA UTI - NITRITE POSITIVE SHEA MARTINEZ MD Dec 29, 2020 09:53
[2020-12-29] MEDS: D5 NS 1000 ML IV SOLUTION 1,000 ML IV SCH ×2 (10:26→20:46)
[2020-12-29] MEDS: cefTRIAXone 1,000 MG/SWFI 10 ML IV PUSH IV SCH ×2 (15:18)
[2020-12-29] MEDS: REMDESIVIR 100 MG/NS 250 ML IVPB IV SCH ×2 (17:23)
[2020-12-29] MEDS: ENOXAPARIN 40 MG/0.4 ML (LOVENOX) SYR SC SCH (20:46)
[2020-12-30] MEDS: D5 NS 1000 ML IV SOLUTION 1,000 ML IV SCH (06:37)
[2020-12-30 06:47] LABS: BASOPHILS % (AUTO) 0 % (0-10); EOSINOPHILS % (AUTO) 0 % (0-10); HEMATOCRIT 36 % (35-52); HEMOGLOBIN 12.8 g/dL (11.5-16.0); LYMPHOCYTES # (AUTO) 1.2 10^3/uL (1.0-4.0); LYMPHOCYTES % (AUTO) 17 % (12-44); MEAN CORPUSCULAR HEMOGLOBIN 33 pg (25-34); MEAN CORPUSCULAR HGB CONC 35 g/dL (32-36); MEAN CORPUSCULAR VOLUME 95 fL (80-99); MEAN PLATELET VOLUME 13.9 fL (9.0-12.2); MONOCYTES # (AUTO) 0.6 10^3/uL (0.0-1.0); MONOCYTES % (AUTO) 9 % (0-12); NEUTROPHILS # (AUTO) 5.4 10^3/uL (1.8-7.8); NEUTROPHILS % (AUTO) 74 % (42-75); PLATELET COUNT 87 10^3/uL (130-400); WHITE BLOOD COUNT 7.3 10^3/uL (4.3-11.0)
[2020-12-30 06:57] LABS: CHLORIDE 107 MMOL/L (98-107); POTASSIUM 2.8 MMOL/L (3.6-5.0); SODIUM 142 MMOL/L (135-145)
[2020-12-30 06:58] LABS: CALCIUM 7.5 MG/DL (8.5-10.1)
[2020-12-30 06:59] LABS: GLUCOSE 124 MG/DL (70-105)
[2020-12-30 07:01] LABS: CARBON DIOXIDE 23 MMOL/L (21-32)
[2020-12-30 07:03] LABS: CREATININE SERUM 0.64 MG/DL (0.60-1.30); GFR ESTIMATED > 60; PHOSPHORUS 1.6 MG/DL (2.3-4.7)
[2020-12-30 07:04] LABS: BUN/CREATININE RATIO 16
[2020-12-30 07:05] LABS: MAGNESIUM 1.5 MG/DL (1.6-2.4)
[2020-12-30] MEDS: FAMOTIDINE 20MG/2ML IV (PEPCID) IVP SCH (08:51)
[2020-12-30] MEDS ORDERED: KCL 20 MEQ TAB (K-DUR) PO ONE (09:45)
[2020-12-30] MEDS: MAGNESIUM 1 GM/100 ML IVPB 100 ML IV SCH ×2 (10:33→11:40)
[2020-12-30] MEDS ORDERED: MTP25TSR PO (12:17)
[2020-12-30] MEDS ORDERED: POTA10TA36 PO (12:17)
[2020-12-30] MEDS ORDERED: ALBU18HF2 IH (12:17)
--- NOTE | 2020-12-30 12:17 | Discharge Summary ---
Diagnosis/Chief Complaint Date of Admission Dec 26, 2020 at 14:00 Date of Discharge Discharge Date: Dec 30, 2020 Discharge Time: 1500 Reason Hospital Visit PT IS AN 89 Y/O FEMALE WHO IS KNOWN TO ME FROM CLINIC. SHE PRESENTED TO THE HOSPITAL WITH THE APPEARANCE OF SHORTNESS OF BREATH, WEAKNESS, WORSENING CONFUSION AND NOT EATING WELL FOR SEVERAL DAYS. SHE WAS EXPOSED TO COVID-19 THROUGH FAMILY MEMBERS AND WAS TESTED IN THE ER, FOUND TO BE POSITIVE FOR COVID WITH A SECONDARY PNEUMONIA. EMS FOUND HER TO BE IN ATRIAL FIBRILLATION WITH A RATE BETWEEN 180 - 220'S Discharge Summary Discharge Physical Examination Allergies: Coded Allergies: No Known Drug Allergies (Unverified , 12/26/20) Vitals & I&Os Vital Signs Date Time Temp Pulse Resp B/P (MAP) Pulse Ox O2 Delivery O2 Flow Rate FiO2 12/30/20 11:39 70 20 115/72 (86) 87 Room Air 12/30/20 07:12 36.6 2.00 Hospital Course Pending Labs Laboratory Tests 12/30/20 06:35: White Blood Count 7.3, Red Blood Count 3.84, Hemoglobin 12.8, Hematocrit 36, Mean Corpuscular Volume 95, Mean Corpuscular Hemoglobin 33, Mean Corpuscular Hemoglobin Concent 35, Red Cell Distribution Width 11.4, Platelet Count 87, Mean Platelet Volume 13.9, Immature Granulocyte % (Auto) 0, Neutrophils (%) (Auto) 74, Lymphocytes (%) (Auto) 17, Monocytes (%) (Auto) 9, Eosinophils (%) (Auto) 0, Basophils (%) (Auto) 0, Neutrophils # (Auto) 5.4, Lymphocytes # (Auto) 1.2, [place] cytes # (Auto) 0.6, Eosinophils # (Auto) 0.0, Basophils # (Auto) 0.0, Immature Granulocyte # (Auto) 0.0, Sodium Level 142, Potassium Level 2.8, Chloride Level 107, Carbon Dioxide Level 23, Anion Gap 12, Blood Urea Nitrogen 10, Creatinine 0.64, Estimat Glomerular Filtration Rate > 60, BUN/Creatinine Ratio 16, Glucose Level 124, Calcium Level 7.5, Phosphorus Level 1.6, Magnesium Level 1.5 Discharge Instructions to patient/family Please see electronic discharge instructions given to patient. Discharge Medications Reviewed and agree with Discharge Medication list on patient's Discharge Instruction sheet SHEA MARTINEZ MD Dec 30, 2020 12:17
[2020-12-30] MEDS ORDERED: LACT1CAP87 PO (12:23)
[2020-12-30] MEDS ORDERED: AMOX-355 PO (12:23)
--- NOTE | 2020-12-30 12:26 | D/C HH Face to Face Order ---
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 DEMENTIA ATRIAL FIBRILLATION WITH RVR FEVER SEPSIS HYPERNATREMIA THROMBOCYTOPENIA UTI - NITRITE POSITIVE Patient Data-Allergies,Ht & Wt Patient Allergies: Coded Allergies: No Known Drug Allergies (Unverified , 12/26/20) Home Health Need/Face to Face Date of Face to Face: Dec 30, 2020 Clinical Findings: Generalized weakness and fatigue, Immune-compromised, Muscle weakness I have seen Pt [id number]: Yes Discharged To: Home Diagnosis/Conditions: COVID 19 PNEUMONIA SECONDARY BACTERIAL PNEUMONIA 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 Pt req the following assistanc: Walker, Wheelchair Home Health Nursing Orders Home Health Services Order: Nursing Services, Physical Therapy-Evaluate & Treat Home Health Infusion Therapy Line Start Date: Dec 27, 2020 Home Health Lab Orders Labs (specify type/freq): CBC, CMP AND MAGNESIUM LEVEL ON 01/01/2021 Therapy Orders Therapy Orders: PT to assess for OT Therapy Specific Orders: Eval assistive deivces, Teach enviro modifications/safety, Increase strength/endurance OXYGEN AT 4 LITERS CONTINUOUSLY - WILL NEED TO CONTINUE TO ASSESS IF PT NEEDS OXYGEN SHE HEALS FROM COVID INFECTION Certify Stmt I certify that this patient is under my care and that I, a nurse practitioner or a physician; a high school assistant principal working with me, had a face to face encounter that - meets the physician face to face encounter requirements with this patient as dated. Medication List: Active Scripts Active Acidophilus Lactobacilli (Lactobacillus Acidophilus) 1 Each Capsule 1 Each PO TID Augmentin 500-125 Tablet (Amoxicillin/Potassium Clav) 1 Each Tablet 1 Each PO TID Metoprolol Succinate 25 Mg Tab.er.24h 25 Mg PO DAILY Potassium Chloride 10 Meq Tab.er.prt 10 Meq PO UD 1 PILL TID X 3 DAYS THEN BID X 3 DAYS THEN DAILY THEREAFTER Ventolin Hfa (Albuterol Sulfate) 18 Gm Hfa.aer.ad 0 Gm IH RTQ4HR PRN Reported Vitamin D3 (Cholecalciferol (Vitamin D3)) 125 Mcg Tablet 125 Mcg PO DAILY Vitamin B-12 (Cyanocobalamin (Vitamin B-12)) 1,000 Mcg Tablet 1,000 Mcg PO DAILY Memantine HCl ER (Memantine HCl) 28 Mg Cap.spr.24 28 Mg PO HS Mirtazapine 15 Mg Tablet 15 Mg PO HS Donepezil HCl 5 Mg Tablet 5 Mg PO DAILY Lab results: Laboratory Tests Test 12/30/20 06:35 Range/Units White Blood Count 7.3 4.3-11.0 10^3/uL Red Blood Count 3.84 3.80-5.11 10^6/uL Hemoglobin 12.8 11.5-16.0 g/dL Hematocrit 36 35-52 % Mean Corpuscular Volume 95 80-99 fL Mean Corpuscular Hemoglobin 33 25-34 pg Mean Corpuscular Hemoglobin Concent 35 32-36 g/dL Red Cell Distribution Width 11.4 10.0-14.5 % Platelet Count 87 L 130-400 10^3/uL Mean Platelet Volume 13.9 H 9.0-12.2 fL Immature Granulocyte % (Auto) 0 % Neutrophils (%) (Auto) 74 42-75 % Lymphocytes (%) (Auto) 17 12-44 % Monocytes (%) (Auto) 9 0-12 % Eosinophils (%) (Auto) 0 0-10 % Basophils (%) (Auto) 0 0-10 % Neutrophils # (Auto) 5.4 1.8-7.8 10^3/uL Lymphocytes # (Auto) 1.2 1.0-4.0 10^3/uL Monocytes # (Auto) 0.6 0.0-1.0 10^3/uL Eosinophils # (Auto) 0.0 0.0-0.3 10^3/uL Basophils # (Auto) 0.0 0.0-0.1 10^3/uL Immature Granulocyte # (Auto) 0.0 0.0-0.1 10^3/uL Sodium Level 142 135-145 MMOL/L Potassium Level 2.8 L 3.6-5.0 MMOL/L Chloride Level 107 98-107 MMOL/L Carbon Dioxide Level 23 21-32 MMOL/L Anion Gap 12 5-14 MMOL/L Blood Urea Nitrogen 10 7-18 MG/DL Creatinine 0.64 0.60-1.30 MG/DL Estimat Glomerular Filtration Rate > 60 BUN/Creatinine Ratio 16 Glucose Level 124 H 70-105 MG/DL Calcium Level 7.5 L 8.5-10.1 MG/DL Phosphorus Level 1.6 L 2.3-4.7 MG/DL Magnesium Level 1.5 L 1.6-2.4 MG/DL My orders: Orders - SHEA MARTINEZ MD Ambulate W/O 02-Home O2 Qual (12/29/20 12:35) Cbc With Automated Diff (12/30/20 03:00) Basic Metabolic Panel (12/30/20 03:00) Magnesium (12/30/20 03:00) Phosphorus (12/30/20 03:00) Potassium Chloride (Tablet) (K Dur Table (12/30/20 09:45) Magnesium 1 Gm/100 Ml Ivpb (Magnesium Reyes (12/30/20 09:45) Potassium Cl 10meq/50ml Ivpb (Kcl 10 Meq (12/30/20 10:45) Attending Discharge Inpt/Inobs (12/30/20 12:06) [facility] Dischage (12/30/20 12:06) Metoprolol Tartrate Injection (Lopressor (12/30/20 12:30) SHEA MARTINEZ MD Dec 30, 2020 12:26
[2020-12-30] MEDS ORDERED: meTOprolol 5 MG/5 ML (LOPRESSOR) VIAL IV ONE (12:30)
[2020-12-30] MEDS: cefTRIAXone 1,000 MG/SWFI 10 ML IV PUSH IV SCH ×2 (13:22)
[2020-12-30] MEDS: POTASSIUM CL 10MEQ/50ML IVPB 50 ML IV SCH ×2 (13:22→14:31)
[2020-12-30] MEDS: REMDESIVIR 100 MG/NS 250 ML IVPB IV SCH ×2 (15:51)
[2020-12-30 17:03] VITALS: BP 113/69
== END 2020-12-30 17:25 | disposition home health service (06) | DRG 871 ==
LOC: EDUNIT# 11:22 → ER 11:24 → ICU 14:00 → 4TH 12-27 13:25
PROVIDERS: ADMIT Family Medicine; ATTEND Family Medicine
PROC: XW033E5 Introduction of Remdesivir Anti-infective into Peripheral Vein, Percutaneous Approach, New Technology Group 5 (ICD-10-PCS; principal; 2020-12-26)
DX: A41.9 Sepsis, unspecified organism (principal); U07.1 COVID-19; J12.82 Pneumonia due to coronavirus disease 2019; J15.9 Unspecified bacterial pneumonia; N39.0 Urinary tract infection, site not specified; E87.0 Hyperosmolality and hypernatremia; I48.91 Unspecified atrial fibrillation; D69.6 Thrombocytopenia, unspecified; F03.90 Unspecified dementia, unspecified severity, without behavioral disturbance, psychotic disturbance, mood disturbance, and anxiety
CPT/HCPCS: 36410; 36415; 51702; 71045; 76937; 80048; 80053; 81000; 83605; 83735; 84100; 84145; 85025; 85379; 85610; 85730; 87040; 87077; 87081; 87088; 87186; 87636; 93005; 94760; 94761